=== PATIENT | female | born 1970 | race Caucasian/White ===

== ENCOUNTER 2020-03-11 14:33 | Emergency (ER) | payer MEDICAID ==
[~2020-03-11] VITALS: Ht 154.9 cm; Wt 65.0 kg
[2020-03-11 14:35] VITALS: BP 124/67
[2020-03-11] MEDS ORDERED: ACETAMINOPHEN 325MG TABLET PO ONE (14:45)
== END 2020-03-11 16:40 | disposition home or self-care (01) ==
LOC: ER 14:33
DX: S40.011A Contusion of right shoulder, initial encounter (principal); X58.XXXA Exposure to other specified factors, initial encounter; Y93.89 Activity, other specified; Y92.89 Other specified places as the place of occurrence of the external cause; Y99.8 Other external cause status
CPT/HCPCS: 73030; 73080; 99284